=== PATIENT | female | born 1965 | race Two or more races ===

== ENCOUNTER 2018-05-15 10:09 | Emergency (ER) | payer MEDICAID, OTHER ==
[~2018-05-15] VITALS: Ht 152.4 cm; Wt 78.9 kg
[2018-05-15 10:11] VITALS: BP 147/84
[2018-05-15] MEDS ORDERED: LIDOCAINE-MPF 2%, 2ML ONE ×2 (10:36→11:20)
[2018-05-15] MEDS ORDERED: DIPH,PERTUSS(ACELL),TET VAC/PF 0.5 ML IM-VACC ONE ×2 (10:37→11:00)
[2018-05-15] MEDS ORDERED: LIDOCAINE-MPF 1%, 5ML INFIL ONE (11:00)
[2018-05-15] MEDS ORDERED: BACITRACIN ZINC OINT 500U/GM, 0.9 GM ONE (11:03)
== END 2018-05-15 11:52 | disposition home or self-care (01) ==
LOC: ED 11:11
DX: S80.252A Superficial foreign body, left knee, initial encounter (principal); V53.6XXA Passenger in pick-up truck or van injured in collision with car, pick-up truck or van in traffic accident, initial encounter; Y93.89 Activity, other specified; Y92.828 Other wilderness area as the place of occurrence of the external cause; Y99.8 Other external cause status
CPT/HCPCS: 10120; 90471; 90715; 99284